=== PATIENT | male | born 1940 | race Caucasian/White ===

== ENCOUNTER → 2017-01-19 | Outpatient (CLI) | payer MEDICARE, BC ==
[~2017-01-19] MED LIST: ASP81TEC PO; CALC-794 PO; EZET1TAB43 PO; MULT-974 PO; OMG1KC PO
[2017-01-19 15:03] LABS: BASOPHILS % (AUTO) 1 % (0-10); EOSINOPHILS # (AUTO) 0.2 10^3/uL (0.0-0.3); EOSINOPHILS % (AUTO) 5 % (0-10); LYMPHOCYTES # (AUTO) 0.9 X 10^3 (1.0-4.0); LYMPHOCYTES % (AUTO) 26 % (12-44); MEAN CORPUSCULAR HEMOGLOBIN 32 PG (25-34); MEAN CORPUSCULAR HGB CONC 34 G/DL (32-36); MEAN CORPUSCULAR VOLUME 96 FL (80-99); MEAN PLATELET VOLUME 9.3 FL (7.4-10.4); MONOCYTES # (AUTO) 0.5 X 10^3 (0.0-1.0); MONOCYTES % (AUTO) 13 % (0-12); NEUTROPHILS % (AUTO) 56 % (42-75); PLATELET COUNT 164 10^3/uL (130-400); RED CELL DISTRIBUTION WIDTH 12.4 % (10.0-14.5); WHITE BLOOD COUNT 3.7 10^3/uL (4.3-11.0)
[2017-01-19 15:23] LABS: ALANINE AMINOTRANSFERASE 30 U/L (0-55); ANION GAP 10 MMOL/L (5-14); ASPARTATE AMINO TRANSFERASE 30 U/L (5-34); BILIRUBIN,TOTAL 0.5 MG/DL (0.1-1.0); BLOOD UREA NITROGEN 11 MG/DL (7-18); BUN/CREATININE RATIO 10; CALCIUM 9.7 MG/DL (8.5-10.1); CARBON DIOXIDE 27 MMOL/L (21-32); CHLORIDE 104 MMOL/L (98-107); CREATINE KINASE 206 U/L (30-200); CREATININE SERUM 1.12 MG/DL (0.60-1.30); GFR ESTIMATED > 60; GLUCOSE 96 MG/DL (70-105); SODIUM 141 MMOL/L (135-145); TOTAL PROTEIN 6.7 G/DL (6.4-8.2)
[2017-01-19 15:30] LABS: MYOGLOBIN SERUM 96.4 NG/ML (10.0-92.0); TROPONIN I < 0.30 NG/ML (<0.30)
== END ==
LOC: LAB 14:42
PROVIDERS: ATTEND Nurse Practitioner Family
DX: R07.9 Chest pain, unspecified (principal)
CPT/HCPCS: 36415; 80053; 82550; 82553; 83874; 84484; 85025

== ENCOUNTER → 2017-03-01 | Outpatient (CLI) | payer MEDICARE, BC ==
[~2017-03-01] VITALS: Ht 177.8 cm; Wt 84.8 kg
[~2017-03-01] MED LIST changes: +REGADENOSON 0.4 MG/5 ML SYR (LEXISCAN) IV ONE
[2017-03-01] MEDS: CATHETER FLUSH 10 ML SYR IV PRN ×2 (08:30→10:01)
[2017-03-01 09:59] VITALS: BP 128/75
--- NOTE | 2017-03-02 23:27 | STRESS TEST ---
DATE OF SERVICE: 03/01/2017 NUCLEAR STRESS TEST REPORT REFERRING PHYSICIAN: Dr. Ivan Harding. ORDERING PHYSICIAN: Dr. Carrington Silveira. DIAGNOSES: Chest pain, dyspnea. PROCEDURE DETAILS: The patient was brought to the stress lab after informed consent was taken. A stress test was performed according to the Lexiscan protocol. Then, 0.4 mg of IV Lexiscan was given intravenously. Low-grade exercise was performed. Baseline electrocardiogram showed sinus rhythm, heart rate of 64 BPM, resting heart rate of 75 BPM, blood pressure 133/75 mmHg, maximum heart rate of 102 BPM and blood pressure 133/75 mmHg. The patient did not have any chest pain, ST-T wave abnormalities or arrhythmias noted. Myoview, 10.73 mCi, were given for rest imaging and 33 mCi of Myoview were given for stress imaging. TID 1.03, ejection fraction 59%. There was a small size, moderate intensity apical/inferior and distal anterior wall reversible defect noted. There was no wall motion abnormality. SSS 8, SRS 6, SDS 2. CONCLUSIONS: 1. Pharmacological stress test was negative for ischemia. 2. Area of reversible ischemia was noted in the apical, distal anterior and inferior wall. Clinical correlation is recommended. Job ID: [id number] DocumentID: [id number] Dictated Date: 03/02/2017 16:25:38 Automatic Dry Starch Operator Date: 03/02/2017 20:40:49 Dictated By: RUTHIE SILVEIRA MD
== END ==
LOC: CARD 08:05
PROVIDERS: ATTEND Internal Medicine Interventional Cardiology
DX: R07.9 Chest pain, unspecified (principal); R06.00 Dyspnea, unspecified; E78.5 Hyperlipidemia, unspecified
CPT/HCPCS: 78452; 93017

== ENCOUNTER → 2017-03-06 | Outpatient (CLI) | payer MEDICARE, BC ==
[~2017-03-06] MED LIST changes: -REGADENOSON 0.4 MG/5 ML SYR (LEXISCAN) IV ONE
== END ==
LOC: CARD 08:38
PROVIDERS: ATTEND Internal Medicine Interventional Cardiology
DX: R07.9 Chest pain, unspecified (principal); R06.00 Dyspnea, unspecified; E78.5 Hyperlipidemia, unspecified
CPT/HCPCS: 93306

== ENCOUNTER 2018-12-24 01:33 | Emergency (ER) | payer MEDICARE, BC ==
[~2018-12-24] VITALS: Ht 182.9 cm; Wt 84.8 kg
[2018-12-24 02:03] LABS: BASOPHILS % (AUTO) 0 % (0-10); EOSINOPHILS # (AUTO) 0.1 10^3/uL (0.0-0.3); EOSINOPHILS % (AUTO) 2 % (0-10); HEMATOCRIT 44 % (40-54); LYMPHOCYTES # (AUTO) 1.7 X 10^3 (1.0-4.0); LYMPHOCYTES % (AUTO) 32 % (12-44); MEAN CORPUSCULAR HEMOGLOBIN 33 PG (25-34); MEAN CORPUSCULAR HGB CONC 34 G/DL (32-36); MEAN CORPUSCULAR VOLUME 97 FL (80-99); MEAN PLATELET VOLUME 9.2 FL (7.4-10.4); MONOCYTES # (AUTO) 0.4 X 10^3 (0.0-1.0); MONOCYTES % (AUTO) 7 % (0-12); NEUTROPHILS # (AUTO) 3.1 X 10^3 (1.8-7.8); NEUTROPHILS % (AUTO) 59 % (42-75); PLATELET COUNT 154 10^3/uL (130-400); RED CELL DISTRIBUTION WIDTH 12.8 % (10.0-14.5); WHITE BLOOD COUNT 5.3 10^3/uL (4.3-11.0)
[2018-12-24 02:12] LABS: BILIRUBIN,URINE NEGATIVE (NEGATIVE); CLARITY,URINE VERY CLOUDY; COLOR,URINE YELLOW; GLUCOSE, URINE (UA) NEGATIVE (NEGATIVE); KETONES,URINE NEGATIVE (NEGATIVE); LEUKOCYTE ESTERASE ,URINE NEGATIVE (NEGATIVE); NITRITE,URINE NEGATIVE (NEGATIVE); PH,URINE 7 (5-9); PROTEIN,URINE NEGATIVE (NEGATIVE); UROBILINOGEN,URINE NORMAL (NORMAL)
[2018-12-24 02:18] LABS: FIBRIN DEGRADATION PRODUCTS 2.07 UG/ML (0.00-0.49); PROTHROMBIN TIME PATIENT 13.4 SEC (12.2-14.7)
[2018-12-24 02:23] LABS: AMPHETAMINE SCREEN, URINE NEGATIVE (NEGATIVE); BARBITURATE SCREEN URINE NEGATIVE (NEGATIVE); BENZODIAZEPINES SCREEN URINE NEGATIVE (NEGATIVE); CANNABINOID SCREEN, URINE NEGATIVE (NEGATIVE); COCAINE SCREEN URINE NEGATIVE (NEGATIVE); METHADONE STAT NEGATIVE (NEGATIVE); METHAMPHETAMINE SCREEN URINE S NEGATIVE (NEGATIVE); OPIATE SCREEN URINE NEGATIVE (NEGATIVE); OXYCODONE STAT NEGATIVE (NEGATIVE); PROPOXYPHENE STAT NEGATIVE (NEGATIVE); TRICYCLIC ANTIDEPRESSANTS SCRE NEGATIVE (NEGATIVE)
[2018-12-24 02:24] LABS: BACTERIA,URINE MODERATE /HPF; RBC,URINE 0-2 /HPF; WBC,URINE 0-2 /HPF
[2018-12-24 02:25] LABS: ALANINE AMINOTRANSFERASE 89 U/L (0-55); ALBUMIN 4.2 GM/DL (3.2-4.5); ALKALINE PHOSPHATASE 73 U/L (40-136); BILIRUBIN,TOTAL 0.5 MG/DL (0.1-1.0); BUN/CREATININE RATIO 16; CALCIUM 9.4 MG/DL (8.5-10.1); CARBON DIOXIDE 24 MMOL/L (21-32); CHLORIDE 102 MMOL/L (98-107); GFR ESTIMATED > 60; GLUCOSE 141 MG/DL (70-105); MAGNESIUM 2.6 MG/DL (1.8-2.4); POTASSIUM 3.4 MMOL/L (3.6-5.0); SODIUM 138 MMOL/L (135-145); TOTAL PROTEIN 7.2 GM/DL (6.4-8.2)
--- NOTE | 2018-12-24 03:15 | ED General ---
General Chief Complaint: Neuro-Stroke Like Symptoms Stated Complaint: FALL,POSS HEAD & BACK INJURY Nursing Triage Note: PT PRESENTS FROM HOME, BROUGHT IN BY AND FAMILY, PT WAS REPORTED TO HAVE FALLEN AROUND 2300 TONIGHT WHILE AMBULATING TO THE BATHROOM. FAMILY REPORTS THE PT HAD SEVERAL MIXED DRINKS AND A BEER EARLIER IN THE EVENING. ETOH NOTED TO BE DETECTED ON THE PT'S BREATH. STATES THE PT'S SPEECH HAS BEEN SLURRED SINCE THE FALL. SOME OF THE PT'S RESPONSES NOTED TO BE INAPPROPRIATE, FAMILY STATES THIS IS BASELINE, PT HAS EARLY SIGNS OF DEMENTIA. Nursing Sepsis Screen: No Definite Risk Allergies and Home Medications Allergies Coded Allergies: No Known Drug Allergies (Unverified , 04/10/13) Home Medications Aspirin 81 Mg Tabec, 81 MG PO DAILY, (Reported) Calcium Carb & Cit/Vitamin D3 1 Each Tablet.er, 1 EACH PO DAILY, (Reported) Ezetimibe/Simvastatin 1 Each Tablet, 1 EACH PO DAILY, (Reported) Multivitamin 1 Each Tablet, 1 EACH PO DAILY, (Reported) [place] 3 Polyunsat Fatty Acids 1,000 Mg Cap, 1,000 MG PO BID, (Reported) Past Vrvrjnl-Ksifyz-Cvkjvr Hx Patient Social History Recent Foreign Travel: No Contact w/Someone Who Travel: No Recent Infectious Disease Expo: No Immunizations Up To Date Tetanus Booster (TDap): More than 5yrs PED Vaccines UTD: Yes Date of Influenza Vaccine: May 25, 2012 Past Medical History Reproductive Disorders: No Sexually Transmitted Disease: No HIV/AIDS: No Obstructive Bowel Arthritis Glaucoma Loss of Vision: Denies Hearing Impairment: Hard of Hearing Skin, Colon Adverse Reaction/Blood Tranf: No Physical Exam Vital Signs Vital Signs - First Documented 12/24/18 01:35 Temp 93.4 Pulse 64 Resp 24 B/P (MAP) 178/109 (132) Pulse Ox 96 O2 Delivery Room Air Capillary Refill : Less Than 3 Seconds Height, Weight, BMI Height: 6'0" Weight: 187lbs. 0.0oz. [id number]; 26.8 BMI Method:Stated Progress/Results/Core Measures Suspected Sepsis Recent Fever Within 48 Hours: No Infection Criteria Present: None New/Unexplained Altered Menta: No Sepsis Screen: No Definite Risk SIRS Temperature:93.4 Pulse: 64 Respiratory Rate: 24 Laboratory Tests 12/24/18 01:46: White Blood Count 5.3 Blood Pressure 178 /109 Mean: 132 Laboratory Tests 12/24/18 01:46: Creatinine 1.00, INR Comment 1.0, Platelet Count 154, Total Bilirubin 0.5 Results/Orders Lab Results Laboratory Tests Test 12/24/18 01:43 12/24/18 01:46 12/24/18 02:03 Range/Units Glucometer 133 H 70-110 MG/DL White Blood Count 5.3 4.3-11.0 10^3/uL Red Blood Count 4.50 4.35-5.85 10^6/uL Hemoglobin 15.0 13.3-17.7 G/DL Hematocrit 44 40-54 % Mean Corpuscular Volume 97 80-99 FL Mean Corpuscular Hemoglobin 33 25-34 PG Mean Corpuscular Hemoglobin Concent 34 32-36 G/DL Red Cell Distribution Width 12.8 10.0-14.5 % Platelet Count 154 130-400 10^3/uL Mean Platelet Volume 9.2 7.4-10.4 FL Neutrophils (%) (Auto) 59 42-75 % Lymphocytes (%) (Auto) 32 12-44 % Monocytes (%) (Auto) 7 0-12 % Eosinophils (%) (Auto) 2 0-10 % Basophils (%) (Auto) 0 0-10 % Neutrophils # (Auto) 3.1 1.8-7.8 X 10^3 Lymphocytes # (Auto) 1.7 1.0-4.0 X 10^3 Monocytes # (Auto) 0.4 0.0-1.0 X 10^3 Eosinophils # (Auto) 0.1 0.0-0.3 10^3/uL Basophils # (Auto) 0.0 0.0-0.1 10^3/uL Prothrombin Time 13.4 12.2-14.7 SEC INR Comment 1.0 0.8-1.4 Activated Partial Thromboplast Time 25 24-35 SEC D-Dimer 2.07 H 0.00-0.49 UG/ML Sodium Level 138 135-145 MMOL/L Potassium Level 3.4 L 3.6-5.0 MMOL/L Chloride Level 102 98-107 MMOL/L Carbon Dioxide Level 24 21-32 MMOL/L Anion Gap 12 5-14 MMOL/L Blood Urea Nitrogen 16 7-18 MG/DL Creatinine 1.00 0.60-1.30 MG/DL Estimat Glomerular Filtration Rate > 60 BUN/Creatinine Ratio 16 Glucose Level 141 H 70-105 MG/DL Calcium Level 9.4 8.5-10.1 MG/DL Corrected Calcium 9.2 8.5-10.1 MG/DL Magnesium Level 2.6 H 1.8-2.4 MG/DL Total Bilirubin 0.5 0.1-1.0 MG/DL Aspartate Amino Transf (AST/SGOT) 43 H 5-34 U/L Alanine Aminotransferase (ALT/SGPT) 89 H 0-55 U/L Alkaline Phosphatase 73 40-136 U/L Troponin I < 0.028 <0.028 NG/ML Total Protein 7.2 6.4-8.2 GM/DL Albumin 4.2 3.2-4.5 GM/DL Serum Alcohol 165 H <10 MG/DL Urine Color YELLOW Urine Clarity VERY CLOUDY H Urine pH 7 5-9 Urine Specific [place] 1.010 L 1.016-1.022 Urine Protein NEGATIVE NEGATIVE Urine Glucose (UA) NEGATIVE NEGATIVE Urine Ketones NEGATIVE NEGATIVE Urine Nitrite NEGATIVE NEGATIVE Urine Bilirubin NEGATIVE NEGATIVE Urine Urobilinogen NORMAL NORMAL MG/DL Urine Leukocyte Esterase NEGATIVE NEGATIVE Urine RBC (Auto) 1+ H NEGATIVE Urine RBC 0-2 /HPF Urine WBC 0-2 /HPF Urine Squamous Epithelial Cells NONE /HPF Urine Crystals NONE /LPF Urine Bacteria MODERATE H /HPF Urine Casts NONE /LPF Urine Mucus NEGATIVE /LPF Urine Culture Indicated NO Urine Opiates Screen NEGATIVE NEGATIVE Urine Oxycodone Screen NEGATIVE NEGATIVE Urine Methadone Screen NEGATIVE NEGATIVE Urine Propoxyphene Screen NEGATIVE NEGATIVE Urine Barbiturates Screen NEGATIVE NEGATIVE Ur Tricyclic Antidepressants Screen NEGATIVE NEGATIVE Urine Phencyclidine Screen NEGATIVE NEGATIVE Urine Amphetamines Screen NEGATIVE NEGATIVE Urine Methamphetamines Screen NEGATIVE NEGATIVE Urine Benzodiazepines Screen NEGATIVE NEGATIVE Urine Cocaine Screen NEGATIVE NEGATIVE Urine Cannabinoids Screen NEGATIVE NEGATIVE My Orders Orders - KAMILA MEANS K DO Cbc With Automated Diff (12/24/18 01:41) Protime With Inr (12/24/18 01:41) Partial Thromboplastin Time (12/24/18 01:41) Comprehensive Metabolic Panel (12/24/18 01:41) Fibrin Degradation Products (12/24/18 01:41) Troponin I (12/24/18 01:41) Ua Culture If Indicated (12/24/18 01:41) Chest 1 View, Ap/Pa Only (12/24/18 01:41) Ekg Tracing (12/24/18 01:41) Nothing By Mouth (12/24/18 Breakfast) Accucheck Stat ONCE (12/24/18 01:41) Saline Lock/Iv-Start (12/24/18 01:41) Saline Lock/Iv-Start (12/24/18 01:41) Vital Signs Stroke Patient Q15M (12/24/18 01:41) Ct Head Wo-R/O Stroke (12/24/18 01:41) O2 (12/24/18 01:41) Intake & Output 06,14,22 (12/24/18 01:41) Monitor-Rhythm Ecg Trace Only (12/24/18 01:41) Dysphagia Screening Tool (12/24/18 01:41) Post Thrombolytic Adminstratio (12/24/18 01:41) Lipid Panel (12/25/18 06:00) Ct Cerv/Thoracic/Lumbar Wo (12/24/18 01:41) Pelvis (12/24/18 01:41) Alcohol (12/24/18 01:54) Drug Screen Stat (Urine) (12/24/18 01:54) Magnesium (12/24/18 01:54) Vital Signs/I&O 12/24/18 12/24/18 01:35 01:38 Temp 93.4 Pulse 64 Resp 24 B/P (MAP) 178/109 (132) Pulse Ox 96 97 O2 Delivery Room Air Room Air Capillary Refill : Less Than 3 Seconds Blood Pressure Mean: 132 Point of Care Testing Finger Stick Blood Glucose: 133 Blood Glucose Action Taken: provider notified Departure Impression Primary Impression: S/P FALL FROM STANDING POSITION Additional Impressions: BACK CONTUSION AND ABRASIONS Alcohol intoxication Disposition: 01 HOME, SELF-CARE Condition: Stable Departure-Patient Inst. Referrals: LEE NORIEGA DO (PCP/Family) Primary Care Physician Patient Instructions: Alcohol Use - When Is Drinking a Problem?, Contusion (DC) , Preventing Falls, Preventing Falls in the Older Adult, Skin Abrasions (DC) Add. Discharge Instructions: LOTS OF CLEAR LIQUIDS SLOW POSITION CHANGES NO ALCOHOL TYLENOL NEEDED FOR PAIN FOLLOW UP WITH YOUR DR IN 2-3 DAYS IF NO BETTER RETURN TO ER IF WORSE All discharge instructions reviewed with patient and/or family. Voiced understanding. KAMILA MEANS DO Dec 24, 2018 03:15
[2018-12-24 03:27] VITALS: BP 129/84
--- NOTE | 2018-12-24 06:37 | Diagnostic Imaging Report ---
PROCEDURE: CT head wo r/o stroke. TECHNIQUE: Multiple contiguous axial images were obtained through the brain without the use of intravenous contrast. Auto Exposure Controls were utilized during the CT exam to meet ALARA standards for radiation dose reduction. INDICATION: Fall and weakness. No prior examinations are available for comparison. FINDINGS: The ventricles and sulci are within normal limits. There is no hydrocephalus or cerebral edema. There is no midline shift or mass effect. There is no intracranial mass, hemorrhage, or extra-axial fluid collection. The visualized paranasal sinuses and mastoid air cells are clear. There are no regional areas of decreased attenuation appreciated to suggest an acute CVA. IMPRESSION: No acute intracranial abnormality. Dictated by: Dictated on workstation # [id number]
--- NOTE | 2018-12-24 07:39 | Diagnostic Imaging Report ---
INDICATION: Back pain. TECHNIQUE: Multiple contiguous axial images were obtained through the cervical, thoracic and lumbar spine without the use of intravenous contrast. Sagittal and coronal reformations were then performed. FINDINGS: There is straightening of the normal cervical lordosis. The vertebral body heights are well-maintained. There is no fracture or traumatic subluxation. The odontoid is intact and lateral masses are well aligned. There is moderate degenerative disc disease at C4-C5, C5-C6 and C6-C7. This is associated with some endplate sclerosis and marginal osteophytosis. Prevertebral soft tissues are within normal limits. The lung apices are clear. The alignment of thoracic spine is normal. Vertebral body heights are well-maintained. There is some mid and lower thoracic spondylosis with prominent osteophytes anteriorly. There is no fracture or traumatic subluxation. There is no bony encroachment upon the spinal canal. Visualized lungs are clear. The alignment of lumbar spine is normal. There is no spondylolysis or spondylolisthesis. No fractures are identified. There is no bony encroachment upon the spinal canal. There is some lower lumbar hypertrophic degenerative facet disease. IMPRESSION: Moderate cervical, thoracic and lumbar spondylosis without acute fracture or traumatic subluxation. Dictated by: Dictated on workstation # [id number]
--- NOTE | 2018-12-24 08:04 | Diagnostic Imaging Report ---
INDICATION: Fall. FINDINGS: There is mild cardiomegaly. The mediastinum is unremarkable. Lungs are clear. There is no pleural effusion or pneumothorax. IMPRESSION: No acute cardiopulmonary abnormality. Cardiomegaly. Dictated by: Dictated on workstation # [id number]
--- NOTE | 2018-12-24 08:19 | Diagnostic Imaging Report ---
INDICATION: Fall. FINDINGS: Examination of the pelvis in the supine projection fails to reveal evidence of fracture, dislocation or other osseous abnormality. IMPRESSION: Negative pelvis. Dictated by: Dictated on workstation # [id number]
== END 2018-12-24 03:40 | disposition home or self-care (01) ==
LOC: EDUNIT# 01:33 → ER 01:38
DX: S30.0XXA Contusion of lower back and pelvis, initial encounter (principal); F10.129 Alcohol abuse with intoxication, unspecified; K58.9 Irritable bowel syndrome, unspecified; F03.90 Unspecified dementia, unspecified severity, without behavioral disturbance, psychotic disturbance, mood disturbance, and anxiety; Z79.82 Long term (current) use of aspirin; W10.8XXA Fall (on) (from) other stairs and steps, initial encounter
CPT/HCPCS: 36415; 70450; 71045; 72125; 72128; 72131; 72170; 80053; 80306; 80320; 81000; 82962; 83735; 84484; 85025; 85379; 85610; 85730; 93005; 93041

== ENCOUNTER 2022-10-14 12:13 | Emergency (ER) | payer MEDICARE, BC ==
[~2022-10-14] VITALS: Ht 175.3 cm; Wt 88.5 kg
[2022-10-14] MEDS ORDERED: KETOROLAC 30 MG/ML VIAL IVP STA (12:56)
[2022-10-14] MEDS ORDERED: NS IV 1000 ML 1,000 ML IV SCH (13:00)
[2022-10-14 13:08] LABS: BASOPHILS % (AUTO) 1 % (0-10); EOSINOPHILS % (AUTO) 1 % (0-10); HEMATOCRIT 40 % (40-54); HEMOGLOBIN 13.7 g/dL (13.3-17.7); LYMPHOCYTES # (AUTO) 1.1 10^3/uL (1.0-4.0); LYMPHOCYTES % (AUTO) 22 % (12-44); MEAN CORPUSCULAR HEMOGLOBIN 33 pg (25-34); MEAN CORPUSCULAR HGB CONC 35 g/dL (32-36); MEAN CORPUSCULAR VOLUME 96 fL (80-99); MEAN PLATELET VOLUME 9.4 fL (9.0-12.2); MONOCYTES # (AUTO) 0.5 10^3/uL (0.0-1.0); MONOCYTES % (AUTO) 10 % (0-12); NEUTROPHILS # (AUTO) 3.1 10^3/uL (1.8-7.8); NEUTROPHILS % (AUTO) 66 % (42-75); PLATELET COUNT 181 10^3/uL (130-400); WHITE BLOOD COUNT 4.7 10^3/uL (4.3-11.0)
--- NOTE | 2022-10-14 13:15 | ED Back Pain ---
General Chief Complaint: Back Problems Stated Complaint: KIDNEY ISSUES Nursing Triage Note: PT TO ROOM 06 VIA W/C WITH C/O RIGHT LOWER BACK PAIN X2 DAYS. PT DENIES PAIN/BURNING WITH URINATION. PT DENIES N/V/D/COUGH/SOB. PT STATES THE PAIN STARTED MILD AND WORSENED TODAY. PT DENIES INJURY. PT REPORTS PAIN STOPS WHEN HE IS RESTING AND IS WORSE WITH MOVEMENT. Source of Information: Patient, Caregiver History of Present Illness Date Seen by Provider: Oct 14, 2022 Time Seen by Provider: 12:17 Initial Comments 82-year-old male presents with with complaints of right lower back pain s tarting a couple days ago. States pain has been progressively getting worse. States pain is worse with walking, moving, and getting up and down. States the pain is gone while he is lying in the bed. gave him a dose of Tylenol arthritis around 8:00 this morning, he is not sure if it helped the pain. Denies radiation to abdomen, gluteus, or down the leg. Denies any numbness or tingling in his legs. Denies loss of bowel bladder. States he is able to walk, but it is difficult due to the pain. Denies history of kidney stones. 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 Patient is a poor historian, some information obtained from patient, but provided most of the history. Patient has a history of dementia, and daily alcohol use. Denies fever/chills, denies chest pain, denies shortness of breath, denies abdominal pain, denies nausea/vomiting, denies dysuria, denies hematuria. Timing/Duration: 2-3 Days Severity: Moderate Pain/Injury Location: Back Method of Injury: Unknown Modifying Factors: Worse With Movement; Improves With Rest Associated Symptoms: denies symptoms; No fever, No weakness, No numbness in legs/feet, No tingling in legs/feet, No sensory/motor loss; lower back pain; No loss of bladder control, No loss of bowel control Allergies and Home Medications Allergies Coded Allergies: No Known Drug Allergies (Unverified , 04/10/13) Patient Home Medication List Home Medication List Reviewed: Yes Aspirin (Aspirin Ec 81 Mg) 81 Mg Tabec, 81 MG PO DAILY, (Reported) Entered as Reported by: DEANNA CANALES on 04/10/132104 Calcium Carb & Cit/Vitamin D3 (Calcium + D3 Er Tablet) 1 Each Tablet.er, 1 EACH PO DAILY, (Reported) Entered as Reported by: DEANNA CANALES on 04/10/132104 Cyclobenzaprine HCl (Cyclobenzaprine HCl) 5 Mg Tablet, 5 MG PO TID Prescribed by: Sharda Chavarria on 10/14/22 144 Ezetimibe/Simvastatin (Vytorin 10-20 Mg Tablet) 1 Each Tablet, 1 EACH PO DAILY, (Reported) Entered as Reported by: BIRDIE AWAD on 04/11/1342 Multivitamin (Multi Vitamin Daily) 1 Each Tablet, 1 EACH PO DAILY, (Reported) Entered as Reported by: BIRDIE AWAD on 04/11/1345 [place] 3 Polyunsat Fatty Acids (Fish Oil) 1,000 Mg Cap, 1,000 MG PO BID, (Reported) Entered as Reported by: DEANNA CANALES on 04/10/132104 Review of Systems Constitutional: see HPI Past Rdrrfsn-Duuoky-Cqrrhs Hx Patient Social History Tobacco Use?: No Smoking Status: Former Smoker Smokeless Tobacco Frequency: Never a User Use of E-Cig and/or Vaping [place]: Never a User Substance use?: No Alcohol Use?: Yes Alcohol type: Beer Alcohol Frequency: Daily Pt feels they are or have been: No Immunizations Up To Date Tetanus Booster (TDap): More than 5yrs PED Vaccines UTD: Yes Past Medical History Surgeries: Yes (COLECTOMY/COLON RESECTION FOR ADENOMA) Abdominal, Appendectomy, Bowel Surgery Respiratory: No Cardiac: No Neurological: No Reproductive Disorders: No Sexually Transmitted Disease: No HIV/AIDS: No Genitourinary: No Gastrointestinal: Yes Obstructive Bowel Musculoskeletal: Yes Arthritis Endocrine: No HEENT: Yes Glaucoma Loss of Vision: Denies Hearing Impairment: Hard of Hearing 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 0.0oz. 84.642058vy; 28.00 BMI Method:Stated General Appearance: No Apparent Distress, WD/WN Neck: Normal Inspection, Supple Cardiovascular: Regular Rate, Rhythm, No Edema, No Gallop, No JVD, Systolic Murmur Respiratory: Lungs Clear, Normal Breath Sounds, No Accessory Muscle Use, No Respiratory Distress Back: Normal Inspection, No CVA Tenderness, Decreased Range of Motion, Other (right lower back, near gluteus, tender to palpation) Extremity: Normal Inspection, Normal Range of Motion Neurologic/Psychiatric: Alert, Normal Mood/Affect Skin: Normal Color, Warm/Dry Progress/Results/Core Measures Results/Orders Lab Results Laboratory Tests Test 10/14/22 12:21 10/14/22 13:02 Range/Units Urine Color YELLOW Urine Clarity CLEAR Urine pH 6.5 5-9 Urine Specific [place] 1.015 L 1.016-1.022 Urine Protein NEGATIVE NEGATIVE Urine Glucose (UA) NEGATIVE NEGATIVE Urine Ketones NEGATIVE NEGATIVE Urine Nitrite NEGATIVE NEGATIVE Urine Bilirubin NEGATIVE NEGATIVE Urine Urobilinogen 0.2 < = 1.0 MG/DL Urine Leukocyte Esterase NEGATIVE NEGATIVE Urine RBC (Auto) NEGATIVE NEGATIVE Urine RBC NONE /HPF Urine WBC RARE /HPF Urine Squamous Epithelial Cells RARE /HPF Urine Crystals NONE /LPF Urine Bacteria NEGATIVE /HPF Urine Casts NONE /LPF Urine Mucus SMALL H /LPF Urine Culture Indicated NO White Blood Count 4.7 4.3-11.0 10^3/uL Red Blood Count 4.10 L 4.30-5.52 10^6/uL Hemoglobin 13.7 13.3-17.7 g/dL Hematocrit 40 40-54 % Mean Corpuscular Volume 96 80-99 fL Mean Corpuscular Hemoglobin 33 25-34 pg Mean Corpuscular Hemoglobin Concent 35 32-36 g/dL Red Cell Distribution Width 12.5 10.0-14.5 % Platelet Count 181 130-400 10^3/uL Mean Platelet Volume 9.4 9.0-12.2 fL Immature Granulocyte % (Auto) 0 % Neutrophils (%) (Auto) 66 42-75 % Lymphocytes (%) (Auto) 22 12-44 % Monocytes (%) (Auto) 10 0-12 % Eosinophils (%) (Auto) 1 0-10 % Basophils (%) (Auto) 1 0-10 % Neutrophils # (Auto) 3.1 1.8-7.8 10^3/uL Lymphocytes # (Auto) 1.1 1.0-4.0 10^3/uL Monocytes # (Auto) 0.5 0.0-1.0 10^3/uL Eosinophils # (Auto) 0.0 0.0-0.3 10^3/uL Basophils # (Auto) 0.0 0.0-0.1 10^3/uL Immature Granulocyte # (Auto) 0.0 0.0-0.1 10^3/uL Sodium Level 140 135-145 MMOL/L Potassium Level 4.0 3.6-5.0 MMOL/L Chloride Level 108 H 98-107 MMOL/L Carbon Dioxide Level 22 21-32 MMOL/L Anion Gap 10 5-14 MMOL/L Blood Urea Nitrogen 10 7-18 MG/DL Creatinine 1.39 H 0.60-1.30 MG/DL Estimat Glomerular Filtration Rate 51 BUN/Creatinine Ratio 7 Glucose Level 93 70-105 MG/DL Calcium Level 10.0 8.5-10.1 MG/DL Corrected Calcium 9.8 8.5-10.1 MG/DL Total Bilirubin 0.5 0.1-1.0 MG/DL Aspartate Amino Transf (AST/SGOT) 36 H 5-34 U/L Alanine Aminotransferase (ALT/SGPT) 32 0-55 U/L Alkaline Phosphatase 44 40-136 U/L Total Protein 7.2 6.4-8.2 GM/DL Albumin 4.2 3.2-4.5 GM/DL My Orders Orders - SHARDA CHAVARRIA APRN Ua Culture If Indicated (10/14/22 12:17) Cbc With Automated Diff (10/14/22 12:56) Comprehensive Metabolic Panel (10/14/22 12:56) Ed Iv/Invasive Line Start (10/14/22 12:56) Ns Iv 1000 Ml (Sodium Chloride 0.9%) (10/14/22 13:00) Ketorolac Injection (Toradol Injection) (10/14/22 12:56) Orphenadrine Inj (Ed Only) (Norflex Inje (10/14/22 14:30) Medications Given in ED Current Medications Medications Dose Ordered Sig/Seth Route Start Time Stop Time Status Last Admin Dose Admin Orphenadrine Citrate 60 mg ONCE ONCE IV 10/14/22 14:30 10/14/22 14:31 DC 10/14/22 14:24 60 MG Vital Signs/I&O 10/14/22 10/14/22 12:19 15:02 Temp 36.4 36.2 Pulse 61 73 Resp 15 16 B/P (MAP) 163/89 (113) 129/85 Pulse Ox 99 O2 Delivery Room Air Room Air Blood Pressure Mean: 113 Progress Progress Note #1: Time: 12:50 Progress Note Patient seen and evaluated, resting comfortably on bed, no acute distress. Moderate distress with movement. Based on exam and symptoms, differential diagnosis includes musculoskeletal pain, nephrolithiasis, pyelonephritis. Systolic murmur noted on exam, patient and deny known history of this murmur. Patient denies chest pain, dizziness, shortness of breath. Instructed to follow-up with primary care provider regarding this. Work-up initiated, CBC, CMP, UA. IV fluids and Toradol ordered. Medical record reviewed for previous labs and testing. Progress Note #2: Time: 14:39 Progress Note Lab results reviewed. CBC grossly normal, RBC slightly decreased at 4.10, CBC shows slightly elevated chloride at 108, slightly elevated creatinine at 1.39, GFR 51, BUN 10, AST slightly elevated at 36. Urinalysis negative for infection, negative for RBCs. Considered noncontrast CT to assess for kidney stones, but did not order due no RBCs on urinalysis. Patient and family given results. Provided follow-up instructions, discharge instructions and return precautions. Patient and family agreed to discharge plan. Departure Impression Primary Impression: Back pain Disposition: 01 HOME, SELF-CARE Condition: Stable Departure-Patient Inst. Decision time for Depature: 14:39 Referrals: LEE NORIEGA DO (PCP/Family) Primary Care Physician Patient Instructions: Back Muscle Strain (DC) Add. Discharge Instructions: Follow-up with your primary care provider regarding this pain as well as the murmur. Take Tylenol and ibuprofen as needed for pain. Take the muscle relaxer, Flexeril up to 3 times a day as needed for pain. Be cautious that it may make you sleepy. Return for any new, concerning, or worsening symptoms. Return for inability to walk, pain shooting down your legs, numbness or tingling in your thighs or legs, or loss of control of your bowel or bladder. Return if the pain begins to radiate into your abdomen, you have pain with urination, or blood in your urine. All discharge instructions reviewed with patient and/or family. Voiced understanding. Scripts Cyclobenzaprine HCl (Cyclobenzaprine HCl) 5 Mg Tablet 5 MG PO TID, #14 TAB 0 Refills Prov: SHARDA CHAVARRIA APRN 10/14/22 SHARDA CHAVARRIA APRN Oct 14, 2022 13:15
[2022-10-14 13:25] LABS: ALBUMIN 4.2 GM/DL (3.2-4.5)
[2022-10-14 13:28] LABS: TOTAL PROTEIN 7.2 GM/DL (6.4-8.2)
[2022-10-14 13:30] LABS: BILIRUBIN,TOTAL 0.5 MG/DL (0.1-1.0)
[2022-10-14 13:32] LABS: CREATININE SERUM 1.39 MG/DL (0.60-1.30)
[2022-10-14 14:23] LABS: BILIRUBIN,URINE NEGATIVE (NEGATIVE); CLARITY,URINE CLEAR; COLOR,URINE YELLOW; GLUCOSE, URINE (UA) NEGATIVE (NEGATIVE); KETONES,URINE NEGATIVE (NEGATIVE); LEUKOCYTE ESTERASE ,URINE NEGATIVE (NEGATIVE); NITRITE,URINE NEGATIVE (NEGATIVE); PH,URINE 6.5 (5-9); PROTEIN,URINE NEGATIVE (NEGATIVE)
[2022-10-14] MEDS ORDERED: ORPHENADRINE 60 MG/2 ML (NORFLEX) AMP (ED ONLY) IV ONE (14:30)
[2022-10-14 14:36] LABS: BACTERIA,URINE NEGATIVE /HPF; SQUAMOUS EPITHELIAL CELL,UR RARE /HPF; WBC,URINE RARE /HPF
[2022-10-14] MEDS ORDERED: CYCL5TAB PO (14:46)
[2022-10-14 15:02] VITALS: BP 129/85
== END 2022-10-14 15:02 | disposition home or self-care (01) ==
LOC: EDUNIT# 12:13 → ER 12:16
DX: M54.50 Low back pain, unspecified (principal); R74.01 Elevation of levels of liver transaminase levels; R79.89 Other specified abnormal findings of blood chemistry; E87.8 Other disorders of electrolyte and fluid balance, not elsewhere classified; Z87.891 Personal history of nicotine dependence
CPT/HCPCS: 36415; 80053; 81000; 85025

== ENCOUNTER 2023-02-02 10:05 | Emergency (ER) | payer MEDICARE, BC ==
[~2023-02-02] VITALS: Ht 177 cm; Wt 89.0 kg
[~2023-02-02 10:05] MED LIST changes: +CYCL5TAB PO
--- NOTE | 2023-02-02 10:20 | ED Upper Extremity ---
General Chief Complaint: Trauma-Non Activation Stated Complaint: RT SHOULDER INJ Nursing Triage Note: PT AMB TO RM 6 PT CO OF PAIN IN R UPPER ARM AND SHOULDER. STATES FELL DOWN DURING NIGHT, DENIES LOC. PT STATES HAD LAZER EYE SURGERY YESTERDAY. Source: patient, family () Exam Limitations: no limitations History of Present Illness Date Seen by Provider: February 02, 2023 Time Seen by Provider: 10:07 Initial Comments 83-year-old male presents to the emergency department today for right shoulder, humerus pain. He fell sometime in the night when he got up to use the restroom. Denies hitting his head or losing consciousness. No other injuries. All other systems reviewed and negative except documented per HPI. Voice recognition software was used to help create this chart Allergies and Home Medications Allergies Coded Allergies: Penicillins (Verified Allergy, Unknown, 02/02/23) hydrocodone (Verified Allergy, Unknown, 02/02/23) Patient Home Medication List Home Medication List Reviewed: Yes Aspirin (Aspirin Ec 81 Mg) 81 Mg Tabec, 81 MG PO DAILY, (Reported) Entered as Reported by: DEANNA CANALES on 04/10/132104 Calcium Carb & Cit/Vitamin D3 (Calcium + D3 Er Tablet) 1 Each Tablet.er, 1 EACH PO DAILY, (Reported) Entered as Reported by: DEANNA CANALES on 04/10/132104 Cyclobenzaprine HCl (Cyclobenzaprine HCl) 5 Mg Tablet, 5 MG PO TID Prescribed by: Sharda Saldana on 10/14/22 144 Ezetimibe/Simvastatin (Vytorin 10-20 Mg Tablet) 1 Each Tablet, 1 EACH PO DAILY, (Reported) Entered as Reported by: BIRDIE AWAD on 04/11/1342 Multivitamin (Multi Vitamin Daily) 1 Each Tablet, 1 EACH PO DAILY, (Reported) Entered as Reported by: BIRDIE AWAD on 04/11/1345 [place] 3 Polyunsat Fatty Acids (Fish Oil) 1,000 Mg Cap, 1,000 MG PO BID, (Reported) Entered as Reported by: DEANNA CANALES on 04/10/132104 Review of Systems Constitutional: see HPI Past Qrqsjdi-Cdfjxp-Wqgylh Hx Patient Social History Tobacco Use?: No Use of E-Cig and/or Vaping dev: No Substance use?: No Alcohol Use?: No Immunizations Up To Date Tetanus Booster (TDap): More than 5yrs PED Vaccines UTD: Yes Past Medical History Surgeries: Yes (COLECTOMY/COLON RESECTION FOR ADENOMA) Abdominal, Appendectomy, Bowel Surgery Respiratory: No Cardiac: No Neurological: No Reproductive Disorders: No Sexually Transmitted Disease: No HIV/AIDS: No Genitourinary: No Gastrointestinal: Yes Obstructive Bowel Musculoskeletal: Yes Arthritis Endocrine: No HEENT: Yes Glaucoma Loss of Vision: Denies Hearing Impairment: Hard of Hearing 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 0.0oz. 84.894411wy; 28.00 BMI Method:Stated General Appearance: WD/WN, no apparent distress HEENT: PERRL/EOMI, normal ENT inspection, pharynx normal Neck: non-tender, supple Cardiovascular: regular rate, rhythm, no murmur Respiratory: chest non-tender, lungs clear, normal breath sounds Gastrointestinal: normal bowel sounds, non tender, soft Back: normal inspection, no vertebral tenderness Shoulder: pain (Mild tenderness palpation with range of motion. Unable to reproduce with palpation. It is worse with pronation, supination movements of the forearm. Pain seems to be mid humerus, shoulder region. Neurovascular and sensory intact. Good axillary sensation.) Elbow/Forearm: normal inspection, non-tender, no evidence of injury Wrist: Yes normal inspection, Yes non-tender, Yes no evidence of injury Hand: normal inspection, non-tender, no evidence of injury Neurologic/Tendon: normal sensation, normal motor functions, normal tendon functions Skin: normal color, warm/dry Progress/Results/Core Measures Results/Orders My Orders Orders - ISMAEL GOODMAN DO Shoulder, Right, 3 Views (02/02/23 10:15) Humerus, Right, 2 Views (02/02/23 10:15) Vital Signs/I&O 02/02/23 02/02/23 10:13 11:17 Temp 36.2 36.2 Pulse 75 75 Resp 18 18 B/P (MAP) 169/91 (117) 169/91 Pulse Ox 96 96 O2 Delivery Room Air Room Air Blood Pressure Mean: 117 Departure Communication (Admissions) Plan of care reviewed the x-ray showed no bony abnormality. He is neurovascular and sensory intact. Likely musculoskeletal injury. We will go ahead and treat conservatively with Motrin Tylenol and close follow-up. Impression Primary Impression: Right shoulder pain Qualified Codes: M25.511 - Pain in right shoulder Additional Impression: Fall Qualified Codes: W19.XXXA - Unspecified fall, initial encounter Disposition: HOME, SELF-CARE Condition: Stable Departure-Patient Inst. Referrals: LESA KLEIN APRN (PCP/Family) Primary Care Physician Patient Instructions: Preventing Falls ED, Shoulder Pain (DC) Add. Discharge Instructions: Alternate ibuprofen and Tylenol as needed for pain. Should symptoms persist follow-up with his primary doctor for further possible testing. Return to the emergency department for any severe concerns. All discharge instructions reviewed with patient and/or family. Voiced understanding. ISMAEL GOODMAN DO February 02, 2023 10:20
--- NOTE | 2023-02-02 10:48 | Diagnostic Imaging Report ---
Indication: Right shoulder pain AP, oblique, and Transscapular views the right shoulder are obtained No fracture or acute bony abnormality is seen. There is prominent degenerative change of the glenohumeral joint and AC joint. The humeral head is high riding the glenoid fossa with minimal distance between the acromion and humeral head, compatible with rotator cuff pathology. 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 No acute fracture or dislocation. Dictated by: Dictated on workstation # [id number]
--- NOTE | 2023-02-02 10:51 | Diagnostic Imaging Report ---
INDICATION: Right humeral pain. AP and lateral views of the right humerus are obtained. FINDINGS: No fracture or acute bony abnormality seen. There is degenerative change of glenohumeral joint and AC joint. IMPRESSION: No acute humeral fracture. Dictated by: Dictated on workstation # [id number]
[2023-02-02 11:17] VITALS: BP 169/91
== END 2023-02-02 11:17 | disposition home or self-care (01) ==
LOC: EDUNIT# 10:05 → ER 10:08
DX: M25.511 Pain in right shoulder (principal); W18.30XA Fall on same level, unspecified, initial encounter
CPT/HCPCS: 73030; 73060

== ENCOUNTER → 2023-03-05 | Outpatient (CLI) | payer MEDICARE, BC ==
--- NOTE | 2023-03-05 12:27 | Diagnostic Imaging Report ---
PROCEDURE: US Renal Bilateral. TECHNIQUE: Multiple real-time grayscale images were obtained over the kidneys in various projections bilaterally. INDICATION: Chronic kidney disease, stage III. Right kidney measures 10.7 x 5.2 x 6.0 cm and the left kidney measures 10.5 x 5.1 x 5.2 cm. A cortical thickness and echogenicity is normal. No calculi are seen. There is no hydronephrosis. Bilateral ureteral jets were visualized. IMPRESSION: Unremarkable renal ultrasound. Dictated by: Dictated on workstation # [id number]
== END ==
LOC: RAD 08:39
PROVIDERS: ATTEND Internal Medicine Nephrology
DX: I12.9 Hypertensive chronic kidney disease with stage 1 through stage 4 chronic kidney disease, or unspecified chronic kidney disease (principal); N18.31 Chronic kidney disease, stage 3a; N40.0 Benign prostatic hyperplasia without lower urinary tract symptoms
CPT/HCPCS: 76770